=== PATIENT | female | born 1975 | race African-American/Black ===

== ENCOUNTER 2020-06-25 20:42 | Emergency (ER) | payer OTHER ==
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
[2020-06-25 21:14] VITALS: BP 136/86
[2020-06-25] MEDS ORDERED: HYDROcodone/ACETAMINOPHEN 5-325 MG TAB PO ONE (21:57)
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
== END 2020-06-25 22:45 | disposition home or self-care (01) ==
LOC: ED 20:42
DX: S16.1XXA Strain of muscle, fascia and tendon at neck level, initial encounter (principal); S29.011A Strain of muscle and tendon of front wall of thorax, initial encounter; S39.012A Strain of muscle, fascia and tendon of lower back, initial encounter; Z79.899 Other long term (current) drug therapy; V49.59XA Passenger injured in collision with other motor vehicles in traffic accident, initial encounter; Y93.89 Activity, other specified; Y92.89 Other specified places as the place of occurrence of the external cause; Y99.8 Other external cause status
CPT/HCPCS: 71046; 72040; 72100